=== PATIENT | female | born 1970 | race Caucasian/White ===

== ENCOUNTER → 2017-03-15 | Outpatient (CLI) | payer SELFPAY ==
[2016-01-24 14:20] VITALS: BP 118/82
[2017-03-15 11:25] LABS: BASOPHILS % (AUTO) 0.6 % (0.2-1.0); EOSINOPHILS % (AUTO) 0.9 % (0.9-2.9); HEMATOCRIT 34.6 % (36.0-47.0); LYMPHOCYTES # (AUTO) 1.3 X10^3/uL (1.3-2.9); LYMPHOCYTES % (AUTO) 35.9 % (21.0-51.0); MEAN CORPUSCULAR HEMOGLOBIN 29.2 pg (27.0-34.0); MEAN CORPUSCULAR HGB CONC 34.6 g/dL (33.0-35.0); MEAN CORPUSCULAR VOLUME 84.6 fL (80.0-100.0); MONOCYTES # (AUTO) 0.2 x10^3/uL (0.3-0.8); MONOCYTES % (AUTO) 5.8 % (0.0-13.0); NEUTROPHILS # (AUTO) 2.1 x10^3/uL (2.2-4.8); NEUTROPHILS % (AUTO) 56.8 % (42.0-75.0); PLATELET COUNT 189 X10^3/uL (150.0-450.0); RED BLOOD COUNT 4.09 X10^6/uL (3.5-5.4); RED CELL DISTRIBUTION WIDTH 12.2 % (11.6-16.5); WHITE BLOOD COUNT 3.6 X10^3/uL (3.6-10.0)
[2017-03-15 11:35] LABS: ALANINE AMINOTRANSFERASE 24 Units/L (12-78); ALBUMIN 4.5 g/dL (3.4-5.0); ALKALINE PHOSPHATASE 54 Units/L (46-116); ASPARTATE AMINO TRANSFERASE 20 Units/L (15-37); BLOOD UREA NITROGEN 7 mg/dL (7-18); CALCIUM 9.1 mg/dL (8.5-10.1); CARBON DIOXIDE 30.2 mmol/L (21-32); CHLORIDE 105 mmol/L (98-107); CREATININE 0.71 mg/dL (0.55-1.02); GLUCOSE 90 mg/dL (65-99); SODIUM 142 mmol/L (136-145); TOTAL PROTEIN 7.5 g/dL (6.4-8.2); eGFR BLACK RACES > 60 (>60); eGFR NON BLACK RACES > 60 (>60)
== END ==
LOC: LAB 10:52
PROVIDERS: ATTEND Internal Medicine Gastroenterology
DX: R10.11 Right upper quadrant pain (principal); R11.2 Nausea with vomiting, unspecified
CPT/HCPCS: 36415; 80053; 85025

== ENCOUNTER → 2017-03-21 | Outpatient (CLI) | payer SELFPAY ==
[2016-01-24 14:20] VITALS: BP 118/82
--- NOTE | 2017-03-21 08:59 | US ---
HISTORY: 47-year-old female with right upper quadrant pain and epigastric pain. Study: Right upper quadrant abdominal ultrasound Comparison: None. Technique: Multiple boone scale and color flow Doppler images of the right upper quadrant were obtain ed. Findings: The liver is normal in echotexture and size. No focal intraparenchymal mass or intrahepatic biliary ductal dilatation can be observed. The gallbladder fails to demonstrate evidence for cholelithiasi s or layering sludge. The common bile duct is unremarkable measuring 2.4 mm. No pericholecystic fl uid or gallbladder wall thickening can be observed. The right kidney appears normal in size without focal parenchymal mass or nephrolithiasis. The righ t kidney measurers 9.5 cm. No hydronephrosis or perirenal fluid can be observed. The pancreatic he ad and body are unremarkable. The pancreatic tail is largely obscured by overlying bowel gas. IMPRESSION: 1. Unremarkable examination of the right upper quadrant. Reported By:
== END ==
LOC: RAD 08:35
PROVIDERS: ATTEND Internal Medicine Gastroenterology
DX: R10.11 Right upper quadrant pain (principal)
CPT/HCPCS: 76705

== ENCOUNTER 2017-12-08 08:08 | Day surgery (SDC) | payer SELFPAY ==
[2017-12-08] MEDS ORDERED: D5 LR 1000 ML 1,000 ML IV ONE (08:18)
[2017-12-08] MEDS ORDERED: BENADRYL INJ 50 MG VIAL ONE (09:28)
[2017-12-08] MEDS ORDERED: FENTANYL INJ 100 mcg ONE (09:30)
[2017-12-08] MEDS: FENTANYL INJ 100 mcg IVP ONE ×2 (09:31→09:43)
[2017-12-08] MEDS ORDERED: VERSED IVP ONE ×3 (09:31→09:56)
[2017-12-08] MEDS ORDERED: ZOFRAN INJ 4 MG VIAL ONE (09:38)
[2017-12-08] MEDS: VERSED ONE ×2 (09:40→09:45)
[2017-12-08] MEDS ORDERED: VERSED ONE (09:46)
[2017-12-08] MEDS ORDERED: FENTANYL INJ 100 mcg IVP ONE ×2 (09:50→09:55)
[2017-12-08 10:37] VITALS: BP 131/61
== END 2017-12-08 10:38 | disposition home or self-care (01) ==
LOC: SURG1 08:08
PROVIDERS: ATTEND Internal Medicine Gastroenterology
PROC: 0DJD8ZZ Inspection of Lower Intestinal Tract, Via Natural or Artificial Opening Endoscopic (ICD-10-PCS; principal; 2017-12-08 16:30)
PROC: 0DB88ZX Excision of Small Intestine, Via Natural or Artificial Opening Endoscopic, Diagnostic (ICD-10-PCS; principal; 2017-12-08 16:30)
PROC: 0DJ08ZZ Inspection of Upper Intestinal Tract, Via Natural or Artificial Opening Endoscopic (ICD-10-PCS; principal; 2017-12-08 16:30)
PROC: 0DB68ZX Excision of Stomach, Via Natural or Artificial Opening Endoscopic, Diagnostic (ICD-10-PCS; principal; 2017-12-08 16:30)
PROC: 0D757ZZ Dilation of Esophagus, Via Natural or Artificial Opening (ICD-10-PCS; principal; 2017-12-08 16:30)
DX: R10.11 Right upper quadrant pain (principal); R11.0 Nausea; R07.89 Other chest pain; R10.84 Generalized abdominal pain; R19.4 Change in bowel habit; Z80.0 Family history of malignant neoplasm of digestive organs; K20.8 Other esophagitis; K22.2 Esophageal obstruction; K22.4 Dyskinesia of esophagus; K55.9 Vascular disorder of intestine, unspecified; K29.60 Other gastritis without bleeding; K64.0 First degree hemorrhoids
CPT/HCPCS: A4217; J1200; J2250; J2405; J3010; J7120

== ENCOUNTER → 2018-01-26 | Outpatient (CLI) | payer BC ==
--- NOTE | 2018-01-26 10:11 | US ---
HISTORY: Right upper quadrant pain. Nausea and vomiting. Study: Right upper quadrant abdominal ultrasound Comparison: Abdominopelvic CT examination dated 06/16/2013. Technique: Multiple boone scale and color flow Doppler images of the right upper quadrant were obtaine d. Findings: The liver is normal in echotexture and size. No focal intraparenchymal mass or intrahepati c biliary ductal dilatation can be observed. The gallbladder fails to demonstrate evidence for claudia lithiasis or layering sludge but shows a small follow-up. The common bile duct is unremarkable measu ring 6 mm. No pericholecystic fluid or gallbladder wall thickening can be observed. The CBD measures within normal limits. The right kidney appears normal in size without focal parenchymal mass or neph rolithiasis. The right kidney measurers 9 x 4 x 6 cm. No hydronephrosis or perirenal fluid can be o bserved. The pancreatic head and body are unremarkable. The pancreatic tail is largely obscured by overlying bowel gas. There is appropriate/normal flow seen in the portal vein. There is appropriate f low in the hepatic artery and hepatic veins. There is no evidence for ascites or loculated abdominal fluid collection. IMPRESSION: 1. Small gallbladder polyp which can be followed up sonographically in 6-12 months. 2. No other right upper quadrant/abdominal sonographic abnormalities observed. Reported By:
== END | disposition home or self-care (01) | DRG 392 ==
LOC: RAD 08:48
PROVIDERS: ATTEND Internal Medicine Gastroenterology
DX: R11.0 Nausea (principal); R10.812 Left upper quadrant abdominal tenderness; R11.2 Nausea with vomiting, unspecified; K82.4 Cholesterolosis of gallbladder
CPT/HCPCS: 76705

== ENCOUNTER 2025-07-28 21:00 | Observation (INO) ==
[2025-07-28 21:31] LABS: BLOOD/HEMOGLOBIN,URINE 2+ (NEGATIVE); LEUKOCYTE ESTERASE ,URINE 1+ (NEGATIVE); NITRITES,URINE NEGATIVE (NEGATIVE)
[2025-07-28] MEDS ORDERED: ZOFRAN INJ 4 MG VIAL ONE (21:35)
[2025-07-28] MEDS: MORPHINE SULFATE INJ 4 MG IVP PRN (21:38)
[2025-07-28] MEDS: ZOFRAN INJ 4 MG VIAL IVP ONE (21:38)
[2025-07-28 21:39] LABS: APPEARANCE,URINE CLEAR (CLEAR); SQUAMOUS EPITHELIAL CELL,UR RARE /HPF (NEGATIVE)
[2025-07-28 21:41] LABS: MEAN PLATELET VOLUME 8.2 fL (7.4-11.0); RED CELL DISTRIBUTION WIDTH 13.1 % (11.6-16.5)
[2025-07-28 21:49] LABS: CREATININE 0.77 mg/dL (0.55-1.02); eGFR NON BLACK RACES > 60 (>60)
--- NOTE | 2025-07-28 22:35 | CT ---
CT ABDOMEN AND PELVIS WITHOUT CONTRAST HISTORY: Abdominal pain COMPARISON: None TECHNIQUE: Axial images were obtained of the abdomen and pelvis without IV contrast. Sagittal and coronal reformatted images were provided. All images were reviewed in a variety of windows and levels. RADIATION REDUCTION TECHNIQUE: Automated exposure control, adjustment of the mA or kV according to patient size, or iterative reconstruction techniques were used. FINDINGS: Please note that lack of IV contrast does limit evaluation of the soft tissues and vascular detail. The visualized lower lung zones are clear. The heart size is within normal limits. There is no evidence of a pericardial effusion. The liver, spleen, pancreas, adrenal glands, and kidneys are grossly unremarkable. The patient is status post cholecystectomy. The common bile duct measures 14 mm in AP dimension. This is considered dilated in a patient who is status post cholecystectomy. There is mild intrahepatic biliary duct dilation. There is no evidence of stones or signs of obstructive uropathy. The stomach, small bowel, and colon are grossly unremarkable. Severe constipation is noted. There are no inflammatory changes in the right lower quadrant to suggest secondary signs of acute appendicitis. The appendix is not visualized on this exam. There is no evidence of retroperitoneal or mesenteric lymphadenopathy. The visualized bones demonstrate degenerative changes. There are no concerning lytic or blastic lesions identified. IMPRESSION: 1. Severe constipation is noted. THIS IS AN ELECTRONICALLY VERIFIED FINAL REPORT 07/28/2025 10:32 PM - Electronically signed by Ayden Garcia MD
[2025-07-28] MEDS: MORPHINE SULFATE INJ 4 MG IVP ONE (22:46)
--- NOTE | 2025-07-29 00:12 | ED.ABDFE ---
HPI Time Seen Time Seen by Provider: 07/29/25 00:10 PCP Primary Care Physician: LULÚ HPI Comment HPI Comment: abdominal pain Complaint Chief Complaint:: PATIENT C/O LOWER ABD PAIN (SUPRAPUBIC AREA) RADIATING AROUND BILATERAL SIDES AND LOWER BACK. PATIENT STATES SHE HAS BEEN HURTING THIS WAY SINCE [id number]. PATIENT STATES SHE WENT TO SEE DR CHINO THIS PAST WEEK FOR POSSIBLY PASSING A KIDNEY STONE. DR CHINO TOLD PATIENT SHE HAD A SLIGHT UTI THAT DIDN'T NEED TO BE TREATED. COVID-19 Coronavirus risk:travel/contact w/high risk person: No Has patient experienced Coronavirus symptoms: No Reviewed Nurses Notes Review: Yes Source History Provided: Patient Mode of arrival Mode of Arrival: Ambulatory Timing Onset of Chief Complaint: 07/28/25 Came on: Gradually Duration Since Onset: Since Onset Duration: Days Location Location: Diffuse Severity Severity: Severe Quality Quality: Aching and Cramping Context History of: Similar pain (dx) Modifying factors Worsening Factors: Nothing Improving Factors: Nothing Associated signs and symptoms Associated Signs and Symptoms: Nausea and Constipation PMH PMH Past Medical History: Yes Past Medical History: GERD, Kidney Stones and SVT Past Medical History Comment: ESOPHAGITIS, GASTRITIS, GASTROPARESIS Past Surgical History: Yes Surgical History: Cholecystectomy and Ortho Surgery Past Surgical History Comment: RT WRIST Family History History of Family Medical Conditions: Yes Family Medical History: Diabetes Mellitus, Cancer, [place], Coronary Artery Disease and Hypertension Social History Does any household member use tobacco: No Alcohol Use: None Do you use any recreational Drugs:: No Lives With: Family Lives Where: Home Travel Risk Coronavirus risk:travel/contact w/high risk person: No Has patient experienced Coronavirus symptoms: No Infectious screening In the last 2 months have you had wt loss of >10#?: NO Have you had fever, night sweats or hemotysis?: No Have you traveled outside the country in the last 6 months?: No Isolation: Standard ROS Review of Systems Constitutional: Loss of Appetite Eyes: No Symptoms Reported ENTM: No Symptoms Reported Respiratoy: No Symptoms Reported Cardiovascular: No Symptoms Reported Gastrointestinal/Abdominal: Abdominal Pain, Constipation and Nausea Genitourinary: No Symptoms Reported Neurological: No Symptoms Reported Musculoskeletal: No Symptoms Reported Integumentary: No Symptoms Reported Hematologic/Lymphatic: No Symptoms Reported Endocrine: No Symptoms Reported Psychiatric: No Symptoms Reported PE Vital Signs Vitals: Vital Signs Temperature 98.3 F Pulse Rate [Right Radial] 74 Pulse Rate [Right Radial] 85 Pulse Rate 68 Pulse Rate 76 Pulse Rate 76 Pulse Rate 73 Pulse Rate 79 Pulse Rate 85 Pulse Rate 77 Pulse Rate 76 Respiratory Rate 20 Respiratory Rate 20 Respiratory Rate 21 Respiratory Rate 23 Respiratory Rate 23 Respiratory Rate 25 Respiratory Rate 23 Respiratory Rate 26 Respiratory Rate 25 Respiratory Rate 34 Respiratory Rate 22 Respiratory Rate 33 Respiratory Rate 22 Blood Pressure [Left Arm] 111/67 Blood Pressure [Left Arm] 127/74 Blood Pressure 165/98 Blood Pressure 169/96 Blood Pressure 169/96 Blood Pressure 200/95 Blood Pressure 186/85 O2 Sat by Pulse Oximetry 98 O2 Sat by Pulse Oximetry 97 O2 Sat by Pulse Oximetry 98 O2 Sat by Pulse Oximetry 97 O2 Sat by Pulse Oximetry 94 O2 Sat by Pulse Oximetry 96 O2 Sat by Pulse Oximetry 96 O2 Sat by Pulse Oximetry 96 O2 Sat by Pulse Oximetry 98 O2 Sat by Pulse Oximetry 97 General Limitations: No Limitations General Appearance: Alert and In Distress Head Head Exam: Normal Inspection, Atraumatic and Normocephalic Eyes Eye exam: Normal Appearance, PERRL and EOMI ENT ENT Exam: Mucous Membranes Moist Neck Neck Exam: Normal Inspection Chest Chest Inspection: Normal Inspection and Symmetric Chest Wall Rise Respiratory Respiratory Exam: Normal Lung Sounds Bilat Respiratory Exam: Bilateral: Clear to Auscultation Cardiovascular Cardiovascular Exam: +S1 and +S2 Abdominal Exam Abdominal Exam: Soft, Distention and Tenderness Abdominal Tenderness: Diffuse Rectal Rectal Exam: Normal Rectal Tone and Other (hard stools in the rectum ) Extremeties Extremities Exam: Normal Inspection MDM Differential Diagnosis Differential Diagnosis- Considerations may include:: Constipation and Diverticular disease Other differential diagnosis: abdominal pian COURSE Treatment Treatment: labs ct abdomen/pelvis,urinalysis,IV morphine .suds enema Reevaluation 1st: Improved (some but patient cont to be in discomfort ) ROR Labs Reviewed 07/28/25 21:23 07/28/25 21:23 Laboratory: WBC 7.5 X10^3/uL (3.6-10.0) 07/28/25 21:23 RBC 4.44 X10^6/uL (3.5-5.4) 07/28/25 21:23 Hgb 13.4 g/dL (12.0-16.0) 07/28/25 21:23 Hct 39.3 % (36.0-47.0) 07/28/25 21: MCV 88.5 fL (80.0-100.0) 07/28/25 21: MCH 30.2 pg (27.0-34.0) 07/28/25: MCHC 34.2 g/dL (33.0-35.0) 07/28/25: RDW 13.1 % (11.6-16.5) 07/28/25: Plt Count 239 X10^3/uL (150.0-450.0) 07/28/25 21: MPV 8.2 fL (7.4-11.0) 07/28/25: Neut % (Auto) 73.6 % (42.0-75.0) 07/28/25: Lymph % (Auto) 16.0 % (21.0-51.0) L 07/28/25: Wood % (Auto) 6.2 % (0.0-13.0) 07/28/25: Eos % (Auto) 1.3 % (0.9-2.9) 07/28/25: Baso % (Auto) 2.9 % (0.2-1.0) H 07/28/25: Neut # (Auto) 5.5 x10^3/uL (2.2-4.8) H 07/28/25: Lymph # (Auto) 1.2 X10^3/uL (1.3-2.9) L 07/28/25: Wood # (Auto) 0.5 x10^3/uL (0.3-0.8) 07/28/25 21: Eos # (Auto) 0.1 x10^3/uL (0.0-0.2) 07/28/25: Baso # (Auto) 0.2 X10^3/uL (0.0-0.1) H 07/28/25: Absolute Nucleated RBC 0.0 /100WBC 07/28/25 21: Sodium 139 mmol/L (136-145) 07/28/25 21: Corrected Sodium TNP 07/28/25 21: Potassium 3.5 mmol/L (3.5-5.1) 07/28/25 21:23 Chloride 102 mmol/L (98-107) 07/28/25 21:23 Carbon Dioxide 30.7 mmol/L (21-32) 07/28/25 21:23 BUN 14 mg/dL (7-18) 07/28/25 21:23 Creatinine 0.77 mg/dL (0.55-1.02) 07/28/25 21:23 Est GFR (MDRD) Af Amer > 60 (>60) 07/28/25 21:23 Est GFR (MDRD) Non-Af > 60 (>60) 07/28/25 21:23 Glucose 90 mg/dL (65-99) 07/28/25 21:23 Lactic Acid < 0.3 mmol/L (0.4-2.0) L 07/28/25 21:23 Calcium 8.9 mg/dL (8.5-10.1) 07/28/25 21:23 Corrected Calcium TNP 07/28/25 21:23 Total Bilirubin 0.30 mg/dL (0.2-1.0) 07/28/25 21:23 AST 22 Units/L (15-37) 07/28/25 21:23 ALT 38 Units/L (12-78) 07/28/25 21:23 Alkaline Phosphatase 66 Units/L (46-116) 07/28/25 21:23 Total Protein 7.7 g/dL (6.4-8.2) 07/28/25 21:23 Albumin 4.4 g/dL (3.4-5.0) 07/28/25 21:23 Globulin 3.3 g/dL (2.5-4.5) 07/28/25 21:23 Albumin/Globulin Ratio 1.3 Ratio (1.1-2.1) 07/28/25 21:23 Specimen Type Clean catch urine 07/28/25 21:20 Urine Color Yellow (YELLOW) 07/28/25 21:20 Urine Appearance Clear (CLEAR) 07/28/25 21:20 Urine pH 6.0 (5.0 - 8.0) 07/28/25 21:20 Ur Specific [place] 1.020 (1.000-1.030) 07/28/25 21:20 Urine Protein Negative (NEGATIVE) 07/28/25 21:20 Urine Glucose (UA) Negative (NEGATIVE) 07/28/25 21:20 Urine Ketones Negative (NEGATIVE) 07/28/25 21:20 Urine Blood 2+ (NEGATIVE) 07/28/25 21:20 Urine Nitrite Negative (NEGATIVE) 07/28/25 21:20 Urine Bilirubin Negative (NEGATIVE) 07/28/25 21:20 Urine Urobilinogen Normal (NORMAL) 07/28/25 21:20 Ur Leukocyte Esterase 1+ (NEGATIVE) 07/28/25 21:20 Urine RBC 0-2 /HPF (0-3) 07/28/25 21:20 Urine WBC 0-2 /HPF (0-5) 07/28/25 21:20 Ur Squamous Epith Cells Rare /HPF (NEGATIVE) 07/28/25 21:20 Urine Bacteria Trace /HPF (NEGATIVE) 07/28/25 21:20 Ur Culture Indicated? No/not indicated 07/28/25 21:20 CT abdomen/plevis no acute pathology except large amount stools Opioid Opioid Risk Tool Age (Dillon box if 16-45): No History of Preadolescent Sexual Abuse: No Total: 0 Total Score Risk Category: Low Risk Copyright: Edward POWELL predicting aberrant behaviors Discharge Plan Diagnosis Discharge Problem: Constipation, Abdominal pain Discharge Plan Patient Disposition: 09 ADMITTED INPATIENT Condition: Stable Prescriptions: Continued pantoprazole 40 mg tablet,delayed release (DR/EC) 40 mg PO BID ondansetron 4 mg tablet,disintegrating 4 mg PO Q8H PRN lisinopril 2.5 mg tablet 2.5 mg PO QDAY metoclopramide HCl 10 mg tablet 10 mg PO QID Discontinued famotidine 40 mg tablet 40 mg PO QDAY hydrocodone-acetaminophen 5-325 mg tablet 1 tab PO TID PRN docusate sodium 100 mg capsule 100 mg PO BID dicyclomine 10 mg capsule 10 mg PO TID Health Concerns: Post Hospitalization: new medications and changes needed to prevent readmission or further decline. Pt educated and given instructions on all concerns. Plan of Treatment: Continue with present treatment and follow up plan. Pt is to keep follow up appointment as instructed and take medications as ordered. Orders to Discharge Patient Discharge Orders: Transfer (Routine); Ordered 07/29/25 Ordered By: Chuck Lazo Follow ups/Referrals Follow ups/Referrals: KARINA CHINO [Primary Care Provider, MEDICAL] - 3 days Instructions Stand Alone Forms: Find Help Web Site, Post Hospital Follow Up Care Print Language: JAPANESE Provider Note Additional Notes given suds enema minimal relief .Continues to experience pain. Spoke with Dr Alexander agreed to have patient admitted
[2025-07-29] MEDS: CITROMA PO ONE (00:48)
[2025-07-29] MEDS ORDERED: ZOFRAN ODT PO PRN (01:08)
[2025-07-29] MEDS: PROTONIX INJ 40 MG VIAL IVP SCH (01:39)
[2025-07-29] MEDS: NS 1,000 ML IV 1,000 ML IV SCH (01:40)
[2025-07-29] MEDS ORDERED: ULTRAM PO PRN (02:42)
[2025-07-29] MEDS: ZOFRAN INJ 4 MG VIAL IVP PRN (02:57)
[2025-07-29] MEDS: DILAUDID INJ IVP PRN (02:57)
[2025-07-29 03:35] VITALS: BMI 19.0
[2025-07-29] MEDS: REGLAN TAB 10 MG PO SCH (08:07)
[2025-07-29] MEDS: ZESTRIL TAB 5 MG PO SCH (08:08)
[2025-07-29] MEDS: K-DUR TAB 20 MEQ PO SCH (08:32)
[2025-07-29] MEDS: COLACE CAP 100 MG PO ONE ×2 (08:32→20:29)
[2025-07-29] MEDS: LINZESS PO ONE (08:32)
[2025-07-29] MEDS ORDERED: CONSULT PHARMACY - POTASSIUM & MAGNESIUM XX SCH (09:00)
[2025-07-29] MEDS: PEPCID TAB 40 MG PO SCH (09:35)
[2025-07-29] MEDS: RELISTOR SC ONE (09:36)
[2025-07-29] MEDS ORDERED: TORADOL 60 MG VIAL IM ONE (17:09)
[2025-07-29] MEDS: NORCO 5/325 MG TAB PO PRN (17:23)
[2025-07-29] MEDS: MORPHINE SULFATE INJ 4 MG ONE (18:43)
[2025-07-29] MEDS: MIRALAX POWDER (1 DOSE 17 G) PO SCH (20:18)
[2025-07-29] MEDS: TYLENOL 325 MG TAB PO PRN (22:14)
[2025-07-30 04:56] LABS: MEAN PLATELET VOLUME 8.6 fL (7.4-11.0)
[2025-07-30 05:03] LABS: RED CELL DISTRIBUTION WIDTH 13.0 % (11.6-16.5)
[2025-07-30 05:17] LABS: CREATININE 0.60 mg/dL (0.55-1.02); eGFR NON BLACK RACES > 60 (>60)
[2025-07-30] MEDS ORDERED: CONSULT PHARMACY - POTASSIUM & MAGNESIUM XX SCH (07:00)
[2025-07-30 07:41] VITALS: TEMP 98.4
[2025-07-30] MEDS: K-RIDER 10 MEQ/100 ML WATER 10 MEQ/100 ML BAG IV SCH (08:07)
[2025-07-30] MEDS: LINZESS PO SCH (08:09)
--- NOTE | 2025-07-30 08:09 | RAD ---
EXAM: ACUTE ABDOMEN SERI ES HISTORY: CONSTIPATION ; GERD, KIDNEY STONES, SVT, GASTRITIS, ESOPHAGITIS, GASTROPARESIS SX: RENEE, RIGHT WRIST COMPARISON: None. TECHNIQUE: One view of the chest and two views of the abdomen were obtained. FINDINGS: The heart size is normal. The lungs are clear. No pneumothorax. Hilar and mediastinal structures and bony structures are unremarkable. EKG leads are present. The overall bowel gas pattern is normal. No free air, dilated loops or significant air-fluid levels. Cholecystectomy. Minimal stool in the right colon. No abnormal calcifications in the distribution of the kidneys or ureters. Bony structures are unremarkable. IMPRESSION: No acute findings THIS IS AN ELECTRONICALLY VERIFIED FINAL REPORT 07/30/2025 8:06 AM - Electronically signed by Cliff Mckenzie MD
[2025-07-30] MEDS: NS 250 ML IV 250 ML IV ONE (08:41)
[2025-07-30] MEDS: KLOR-CON 10 MEQ TAB PO NR (08:44)
[2025-07-30] MEDS: GOLYTELY or GAVILYTE or Equivalent PO SCH (09:40)
[2025-07-30 12:01] VITALS: BP 142/75; PULSE 70; RESP 19; O2SAT 96
== END 2025-07-30 14:20 | disposition home or self-care (01) ==
LOC: ER 21:00 → MED/SURG 21:00
PROVIDERS: ADMIT Internal Medicine; ATTEND Obstetrics & Gynecology Obstetrics
DX: Z87.19 Personal history of other diseases of the digestive system; R10.84 Generalized abdominal pain; Z79.899 Other long term (current) drug therapy; K59.09 Other constipation; K21.9 Gastro-esophageal reflux disease without esophagitis; R51.9 Headache, unspecified; R13.11 Dysphagia, oral phase; Z87.442 Personal history of urinary calculi; E83.51 Hypocalcemia